=== PATIENT | male | born 1940 | race Caucasian/White ===

== ENCOUNTER 2022-07-16 07:53 | Outpatient (CLI) | payer MEDICARE, BC, SELFPAY | END 2022-07-16 07:54 | disposition home or self-care (01) | PROVIDERS: Visit Provider Family Medicine | DX: R06.09 Other forms of dyspnea (principal) | CPT/HCPCS: A0425; A0429 ==

== ENCOUNTER 2022-08-05 04:23 | Outpatient (CLI) | payer MEDICARE, BC, SELFPAY | END 2022-08-05 04:24 | disposition home or self-care (01) | LOC: AMB 08-10 13:47 | PROVIDERS: Visit Provider Family Medicine | DX: R06.09 Other forms of dyspnea (principal) | CPT/HCPCS: A0425; A0429 ==

== ENCOUNTER 2022-09-03 19:12 | Outpatient (CLI) | payer MEDICARE, BC, SELFPAY | END 2022-09-03 19:13 | disposition home or self-care (01) | LOC: AMB 09-05 12:54 | PROVIDERS: Visit Provider Emergency Medicine Emergency Medical Services | DX: S09.90XA Unspecified injury of head, initial encounter (principal); W07.XXXA Fall from chair, initial encounter; Y92.009 Unspecified place in unspecified non-institutional (private) residence as the place of occurrence of the external cause | CPT/HCPCS: A0425; A0429 ==

== ENCOUNTER 2022-10-19 09:54 | Outpatient (CLI) | payer MEDICARE, BC, SELFPAY | END 2022-10-19 09:55 | disposition home or self-care (01) | LOC: AMB 10-22 11:08 | PROVIDERS: Visit Provider Family Medicine | DX: R06.03 Acute respiratory distress (principal) | CPT/HCPCS: A0425; A0429 ==